=== PATIENT | male | born 1960 | race American Indian/Alaskan Native ===

== ENCOUNTER 2018-01-30 06:52 | Day surgery (SDC) | payer MEDICAID ==
[2018-01-23 10:50] VITALS: BMI 25.2
[2018-01-30] MEDS ORDERED: Lactated Ringer's 1,000 ML IV ONE ×3 (07:21→09:41)
[2018-01-30] MEDS ORDERED: Lidocaine 2% Inj (20ml) ONE (07:32)
[2018-01-30] MEDS ORDERED: ceFAZolin IV 2 gm in Dextrose 2 GM/50 ML BAG IVPB ONE (07:32)
[2018-01-30] MEDS ORDERED: Propofol 10 mg/ml Inj (20 ML) ONE (07:45)
[2018-01-30] MEDS ORDERED: Midazolam 2 MG/2 ML VIAL ONE (07:46)
[2018-01-30] MEDS ORDERED: ePHEDrine 50 mg/ml Inj ONE (08:41)
[2018-01-30] MEDS: Bupivacaine HCl 0.25% PF (30 ml) Inj ONE ×3 (08:46→09:45)
[2018-01-30] MEDS: Liquid Adhesive TOP ONE ×2 (09:41→09:45)
[2018-01-30] MEDS ORDERED: Oxycodone/Acetaminophen 5/325 mg Tab PO PRN ×2 (10:12)
--- NOTE | 2018-01-30 10:18 | PCM.SURG1 ---
Surgeon's Initial Post Op Note - Surgeon's Notes Surgeon: Dr. Karsten Ball DPM Rn Maternal Child: Dr. Leonela Gao DPM PGY-2, Dr. Ashlyn Rodas DPM PGY-1 Type of Anesthesia: General LMA, Local Anesthesia Administered By: Dr. Annabella ROBLES Pre-Operative Diagnosis: Right foot hallux abductovalgus with 2nd digit hammer toe Operative Findings: See dictation. M: 3-0, 4-0 chromic gut, 3-0 vicryl, 4-0 prolene. I: 10 cc of 0.25% marcaine plain - post-op Post-Operative Diagnosis: Same Operation Performed: Right hallux Dilip bunionectomy, Kayode, 2nd digit arthroplasty Specimen/Specimens Removed: none Estimated Blood Loss: EBL {In ML}: 0 Blood Products Given: N/A Drains Used: No Drains Post-Op Condition: Good Date of Surgery/Procedure: 01/30/18 Time of Surgery/Procedure: 10:19
[2018-01-30] MEDS ORDERED: HYDROmorphone 0.5 mg/0.5 ml ISec IVP PRN (10:34)
[2018-01-30 10:42] VITALS: RESP 18
[2018-01-30 12:56] VITALS: TEMP 98
--- NOTE | 2018-01-30 13:10 | RAD ---
PROCEDURE: Right Foot Radiographs. HISTORY: s/p right foot surgery COMPARISON: None. FINDINGS: BONES: Status post bunionectomy. Osteotomy 1st metatarsal. This osteotomy is fixed with a screw and a pin. Status post osteotomy mid 1st proximal phalanx, with fixation about the osteotomy. Status post osteotomy distal aspect 2nd proximal phalanx. Orthopedic pin traverses the 2nd digit. JOINTS: Normal. SOFT TISSUES: Normal. OTHER FINDINGS: None. IMPRESSION: Status post multiple osteotomies and bunionectomy. Internal fixation as described.
[2018-01-30 14:22] VITALS: BP 128/95; PULSE 104; O2SAT 95
--- NOTE | 2018-01-30 23:19 | CP.SDSHP ---
Same Day Surgery H & P - History Proposed Procedure: right foot bunionectomy and 2nd digit hammertoe correction - Allergies Allergies: Allergies No Known Allergies Allergy (Verified 01/23/18 10:14) - Physical Exam Mental Status: Alert & Oriented x3 - {Optional Preform as Required} Integument: Other - Date & Time Date: 01/30/18 Time: 07:00 Short Stay Discharge - Short Stay Discharge Admitting Diagnosis/Reason for Visit: M20.12/ M20.42/ Disposition: HOME/ ROUTINE Referrals: Karsten Ball DPM [Primary Care Provider] - Additional Instructions (Diet, Activity): --Patient in good/stable condition for discharge home. Pt to resume medications per medical reconciliation. Resume regular diet. Please keep dressing clean, dry, & intact to surgical site, use plastic bag over bandage for showering, wear post op shoe at all times when ambulating with crutches, call clinic if you see signs of infection (redness, swelling, malodor), please make an appointment to see in office/clinic within 1 week for post-op check. Progress Note/Discharge Note with Instructions: - Patient evaluated bedside in recovery s/p surgical procedure. - After surgical procedure patient in NAD - (+) Void, (+) Appetite - Capillary refill time <3s and NVSI intact. - Patient denies complaints at this time - Post operative instructions and plan of care explained to patient at length. - Pt. acknowledges understanding. - Patient stable for DC per podiatric surgery
--- NOTE | 2018-01-30 23:19 | CP.PCM.PN ---
Subjective - Date & Time of Evaluation Date of Evaluation: 01/30/18 Time of Evaluation: 07:30 - Subjective Subjective: Podiatry Preoperative Evaluation- Dr. Zamora 57 y.o male with PMH of HTN seen and evaluated preoperative for right foot surgery. Patient is seen at bedside with girlfriend. Reports has right foot pain that has been bothering him for 10 years, worse in the last 5 years. Reports pain currently 4/10. Rates the pain 10/10 after a long day of walking. Describes pain as a throbbing pain. Denies numbness and tingling. Reports nothing to eat or drink since 9pm yesterday. Denies nausea, fever, shortness of breath, chest pains or chills PMH: HTN PSH: right knee surgery ALL: NKDA SH: reports smoking 35 years 3 cigarettes per day, denies illicit drug use FH: mother and father- DM, HTN, HLD MEDS: see MAR list Objective - Vital Signs/Intake and Output Vital Signs (last 24 hours): Temp Pulse Resp BP Pulse Ox 98 F 104 H 18 128/95 H 95 01/30/18 13:50 01/30/18 13:50 01/30/18 13:50 01/30/18 13:50 01/30/18 13:50 Intake and Output: 01/30/18 01/31/18 18:59 06:59 Intake Total 1450 Output Total 250 Balance 1200 - Constitutional Appears: Well, Non-toxic, No Acute Distress - Extremities Exam Extremities Exam: absent: Calf Tenderness Additional comments: VASC: DP and PT 2/4 bilaterally, CFT < 3 seconds x 10 digits, temperature gradient warm to cool proximal knees to distal toes, nonpitting edema noted to the medial aspect of 1st MPJ ORTHO: moderate pain with palpation to the medial aspect of 1st MPJ, severe hallux valgus deformity R>L, trackbound, no tracking, pain during AROM and PROM at 1st MTPJ hammertoe deformity noted to right 2nd digit NEURO: gross and protective sensation intact DERM: mild erythema secondary to pressure to the medial aspect of 1st MPJ, no open lesions, no clinical signs of infection - Psychiatric Exam Psychiatric exam: Normal Affect, Normal Mood Assessment and Plan - Assessment and Plan (Free Text) Assessment: 57 y.o male with PMH of HTN seen and evaluated preoperative for right bunionectomy and 2nd hammertoe correction Plan: Pt was seen and examined in SDS Pt NPO status was confirmed All pre-op testing and clearance in chart Pt has exhausted all conservative treatment at this time and is opting for surgical intervention Pt was explained procedure and post-operative course All pt's questions were answered to satisfaction No guarantees were made Pt understands all risks, benefits and complications of procedure Pt will follow-up with Dr. Ball within 1 week of surgery
--- NOTE | 2018-01-31 09:00 | OP ---
PROCEDURE DATE: 01/30/2018 PREOPERATIVE DIAGNOSES: 1. Right foot hallux abductovalgus. 2. Right foot second digit hammer toe deformity. POSTOPERATIVE DIAGNOSES: 1. Right foot hallux abductovalgus. 2. Right foot second digit hammer toe deformity. PROCEDURES PERFORMED: 1. Right foot first metatarsal osteotomy and Kayode. 2. Right foot second digit proximal interphalangeal joint arthroplasty. SURGEON: Karsten Ball DPM. ASSISTANTS: Leonela Gao DPM, PGY-2, Dr. Ashlyn Rodas DPM, PGY-1. ANESTHESIOLOGIST: Dr. Winchester. TYPE OF ANESTHESIA: LMA with focal injection. INDICATION: The patient is a 57-year-old male with the above-mentioned diagnosis. The patient is being treated by Dr. Ball's office on outpatient basis where he has exhausted multiple forms of conservative treatment. The patient seeks surgical intervention at this time. All risks, benefits, and possible complications to the proposed procedure have been explained to the patient at length. The patient verbalizes understanding and wishes to proceed. All questions were answered. No guarantees were given nor implied. Consent was signed and n.p.o. status was confirmed prior to bringing the patient to the operating room. OPERATIVE PROCEDURE: The patient was brought into the operating room and placed on the operative room table in a supine position. A well-padded pneumatic ankle tourniquet was applied to the patient's right ankle in supramalleolar position. Once anesthesia was achieved, a local injection consisting of 20 mL of 1:1 mixture of 0.25% Marcaine and 2% lidocaine plain was given in a local block fashion to the patient's right foot. After local anesthesia was achieved, the right foot was then prepped and draped in the usual sterile manner and the procedure began. PROCEDURE 1: Right foot first metatarsal osteotomy and Kayode. Attention was directed to the dorsal aspect of the first metatarsal of the right foot where an approximately 6 cm linear to longitudinal incision was made medial and parallel to the tendon of the extensor hallucis longus involving the contour deformity. The incision was deepened into the subcutaneous tissue using a combination of sharp and blunt dissection. Care was taken to identify and retract all vital neurovascular structures. All bleeders were cauterized and ligated as necessary. At this time and an inverted L-type capsulotomy was performed over the dorsal aspect of the first metatarsophalangeal joint. The periosteum and capsular structures were then carefully dissected free of their osseous attachments and retracted medially and laterally, thus exposing the head of the first metatarsal into the operative site. Next, utilizing a sagittal saw, the dorsal and medial prominences were resected and passed off the operative field. All rough edges were then smoothed with a sagittal saw. Next, attention was directed to the medial aspect of the first metatarsal head where through and through V-type osteotomy was created in the metaphyseal region of the bone utilizing a sagittal saw. The apex of the osteotomy pointed distally with the arms pointing proximal plantar and proximal dorsal. The dorsal arm was made longer to accommodate for internal fixation. Upon completion of the osteotomy, the capital fragment was distracted and passed laterally to a more corrected position upon the first metatarsal shaft. At this time, two 0.062 K-wires were driven from dorsal to plantar across the osteotomy site to serve as temporary fixation. Following sequential removal of these K-wires and following standard AO principle technique, a 2 x 18 mm Synthes screw was inserted and placed across the osteotomy site. Next, a 0.062 inch K-wire was placed from dorsal distal to proximal plantar to also secure the osteotomy site. The remaining medial shaft was then resected with the sagittal saw and passed from the operative field. Correction of the deformity was assessed at this time and noted to be excellent and then via the original incision, the periosteum and capsular structures were reflected medially and laterally off the base of the proximal phalanx. Next, utilizing a sagittal saw, a dorsal to plantar proximal osteotomy was created in the proximal phalanx to the right hallux. A wedge of bone was resected and passed off the operative field. Next, using a double prong drill guide positioned over the osteotomy, the holes were drilled. Next, utilizing a Synthes BME staple, the osteotomy was fixated with excellent compression noted. The surgical site was then irrigated with copious amounts of normal sterile saline. The periosteum and capsular structures were reapproximated with #2-0 Vicryl, the subcutaneous in 3-0 chromic. The subcutaneous tissue was reapproximated with #4-0 chromic and the skin was reapproximated with # 4-0 Prolene in a horizontal mattress technique. PROCEDURE #2: Right foot second digit PIPJ arthroplasty. Attention was directed to the dorsal aspect of the right foot second digit where a semi-elliptical incision was made over the second PIPJ. The incision was deepened into the subcutaneous tissue with care being taken to identify and retract all vital neurovascular structures. All bleeders are cauterized and ligated as necessary. At this time, a transverse sternotomy and capsulotomy were performed to the proximal interphalangeal joint of the digits. The head of the proximal phalanx was then freed of its capsular and ligamentous attachments. Next, utilizing a sagittal saw, the head of the proximal phalanx was resected and passed off the operative field. The surgical site was then irrigated with copious amounts of normal sterile saline. Next, using a 0.045 inch K-wire, it was driven from the base of the middle phalanx exiting the distal aspect of the digit and then the K-wire was retrograded back into the proximal phalanx. The K-wire was then bent and cut and a cap was placed. The incision was then reapproximated with #4-0 Prolene. Postoperative dressings included Steri-Strips, Betadine, Adaptics, 4x4, Martita, and lastly Chacorta. A postoperative injection consisting of 10 mL of 0.25% Marcaine plain was given in a local block fashion. POSTOPERATIVE CONDITION: The patient tolerated the anesthesia and procedure well with no apparent complications or complaints. The patient was escorted from the operating room to the recovery room with vital signs stable and neurovascular structures intact. The patient will follow up with Dr. Ball's office on an outpatient basis. Leonela Gao DPM Karsten Ball DPM
== END 2018-01-30 14:22 | disposition home or self-care (01) ==
LOC: H.OPSURG 06:52
PROVIDERS: ATTEND Podiatrist Foot & Ankle Surgery
DX: M20.11 Hallux valgus (acquired), right foot (principal); M20.41 Other hammer toe(s) (acquired), right foot; I10 Essential (primary) hypertension; F17.210 Nicotine dependence, cigarettes, uncomplicated
CPT/HCPCS: 28285; 28295; 73630; 82948; 97161; C1713; G8978; G8979; G8980; J0690; J2001; J2250; J2704; J3010; J7030; J7120